=== PATIENT | male | born 1950 | race Caucasian/White ===

== ENCOUNTER 2020-10-06 06:17 | Day surgery (SDC) | payer OTHER, SELFPAY ==
[~2020-10-06] VITALS: Ht 182.9 cm; Wt 92.1 kg
[2020-10-06] MEDS ORDERED: CEFAZOLIN SOD 1 GM in D5W 50 ML IV ONE (07:00)
[2020-10-06] MEDS ORDERED: D5/0.45 NS 1,000 ML IV.SOLN IV ONE (07:36)
[2020-10-06] MEDS ORDERED: DEXAMETHASONE SOD PHOSPHATE 4 MG/ML VIAL IVP ONE (07:36)
[2020-10-06] MEDS ORDERED: SUGAMMADEX SODIUM 200 MG/2 ML VIAL IV ONE (07:36)
[2020-10-06] MEDS ORDERED: ROCURONIUM BROMIDE 10 MG/ML (ZEMURON) IV ONE (07:36)
[2020-10-06] MEDS ORDERED: LR 1,000 ML IV.SOLN IV ONE (07:36)
[2020-10-06] MEDS ORDERED: NS 1000 ML IV.SOLN IV ONE (07:36)
[2020-10-06] MEDS ORDERED: DESFLURANE 15 MIN GAS INH ONE (07:36)
[2020-10-06] MEDS ORDERED: KETOROLAC TROMETHAMINE 30 MG VIAL IVP ONE (07:36)
[2020-10-06] MEDS ORDERED: GLYCOPYRROLATE 0.2 MG/ML VIAL IJ ONE (07:36)
[2020-10-06] MEDS ORDERED: MIDAZOLAM HCL 5 MG/5 ML VIAL IVP ONE (07:36)
[2020-10-06] MEDS ORDERED: PROPOFOL 200MG/ 20ML VIAL (DIPRIVAN) IV ONE (07:36)
[2020-10-06] MEDS ORDERED: fentaNYL CITRATE 250 MCG/5 ML AMP IV ONE (07:36)
[2020-10-06] MEDS ORDERED: ePHEDrine sulfate 50 MG/ML VIAL IVP ONE (07:36)
[2020-10-06] MEDS ORDERED: MIDAZOLAM HCL 2 MG/2 ML VIAL (VERSED) IVP PRN (08:30)
[2020-10-06] MEDS ORDERED: MEPERIDINE HCL/PF 25 MG/ML DISP.SYRIN IVP PRN (08:30)
[2020-10-06] MEDS ORDERED: METOCLOPRAMIDE HCL 10 MG/2 ML VIAL IVP PRN (08:30)
[2020-10-06] MEDS ORDERED: HYDROmorphone 1 INJ. 1 MG/ML CARTRIDGE IVP PRN ×3 (08:30→09:30)
[2020-10-06] MEDS ORDERED: LABETALOL 100 MG/ 20ML VIAL IVP PRN (08:30)
[2020-10-06] MEDS ORDERED: hydrALAZINE HCL 20 MG/ML VIAL IVP PRN ×2 (08:30→18:00)
[2020-10-06] MEDS ORDERED: LR 1,000 ML IV SCH (08:30)
[2020-10-06] MEDS ORDERED: ONDANSETRON HCL 4 MG/2 ML VIAL IVP PRN ×2 (08:30→09:30)
[2020-10-06] MEDS ORDERED: HYDROcodone/ACETAMIN 5-325 MG TAB (NORCO/ VICODIN) PO PRN (09:30)
[2020-10-06 10:38] LABS: HEMATOCRIT 32.5 % (36-54); HEMOGLOBIN 10.6 g/dL (14.0-18.0)
[2020-10-06 11:51] VITALS: BP_SYST 154
[2020-10-06 12:25] VITALS: BP_SYST 133
[2020-10-06] MEDS: CEFAZOLIN 1 GM IVPB PREMIX 50 ML IV SCH ×2 (14:49→22:07)
[2020-10-06] MEDS: D5/0.45 NS 1,000 ML IV SCH ×2 (14:51→20:07)
[2020-10-06] MEDS ORDERED: AMIO200T66 PO (16:08)
[2020-10-06] MEDS ORDERED: FURO-149 PO (16:08)
[2020-10-06] MEDS ORDERED: METO50TA7 PO (16:08)
[2020-10-06] MEDS ORDERED: OMEP40CA13 PO (16:08)
[2020-10-06] MEDS ORDERED: SITA1TBM4 PO (16:08)
[2020-10-06] MEDS ORDERED: DIGO125T PO (16:08)
[2020-10-06] MEDS ORDERED: FLUT1AER INH (16:08)
[2020-10-06] MEDS ORDERED: TAMS-11 PO (16:08)
[2020-10-06] MEDS ORDERED: PRED1TAB PO (16:08)
[2020-10-06 16:17] VITALS: BP_SYST 177
[2020-10-06] MEDS ORDERED: AMIODARONE HCL 200 MG TABLET PO ONE (17:45)
[2020-10-06] MEDS ORDERED: ENALAPRILAT DIHYDRATE 1.25 MG/ML VIAL IVP PRN (18:00)
[2020-10-06] MEDS: HYDROcodone/ACETAMIN 5-325 MG TAB (NORCO/ VICODIN) PO PRN (18:23)
[2020-10-06] MEDS ORDERED: DIGOXIN 0.125 MG TABLET PO ONE (18:30)
[2020-10-06] MEDS ORDERED: METOPROLOL SUCCINATE 50 MG TAB.SR.24H (TOPROL XL) PO ONE (18:30)
[2020-10-06 18:55] VITALS: BP_SYST 175
[2020-10-06] MEDS ORDERED: PANTOPRAZOLE SODIUM 40 MG TAB PO ONE (19:00)
[2020-10-06 20:00] VITALS: BP_SYST 154
[2020-10-06] MEDS ORDERED: TAMSULOSIN HCL 0.4 MG CAP PO SCH (21:00)
[2020-10-06] MEDS ORDERED: FAMOTIDINE PF 20 MG/2 ML VIAL IVP SCH (21:00)
[2020-10-07] MEDS: HYDROcodone/ACETAMIN 5-325 MG TAB (NORCO/ VICODIN) PO PRN (00:18)
[2020-10-07] MEDS: ALBUTEROL SULFATE 0.083% 2.5 MG/3 ML VIAL.NEB INH SCH ×3 (01:00→07:22)
[2020-10-07 01:12] VITALS: BP_SYST 159
[2020-10-07] MEDS: BUDESONIDE 0.5 MG/2 ML AMPUL.NEB INH SCH ×2 (01:28→07:22)
[2020-10-07] MEDS: D5/0.45 NS 1,000 ML IV SCH (06:10)
[2020-10-07 06:13] LABS: BASOPHILS % (AUTO) 0.1 % (0.0-2.0); HEMATOCRIT 32.7 % (36-54); HEMOGLOBIN 10.6 g/dL (14.0-18.0); LYMPHOCYTES # (AUTO) 1.9 K/uL (1.0-5.5); LYMPHOCYTES % (AUTO) 13.4 % (20.5-51.5); MEAN CORPUSCULAR HEMOGLOBIN 27 pg (27-31); MEAN CORPUSCULAR HGB CONC 32 % (32-36); MEAN CORPUSCULAR VOLUME 83 fL (79.0-98.0); MONOCYTES # (AUTO) 0.9 K/uL (0.0-1.0); MONOCYTES % (AUTO) 6.4 % (1.7-9.3); NEUTROPHILS # (AUTO) 11.2 K/uL (1.8-7.7); NEUTROPHILS % (AUTO) 80.1 % (40.0-70.0); PLATELET COUNT (AUTO) 279 K/uL (130-430); RED BLOOD CELL COUNT(AUTO) 3.95 MIL/uL (4.2-6.2); RED CELL DISTRIBUTION WIDTH 17.5 % (9.0-15.0)
[2020-10-07 06:22] LABS: ALANINE AMINOTRANSFERASE 36 U/L (12-78); ALBUMIN 2.6 g/dL (3.4-4.8); ANION GAP 6 (5-15); ASPARTATE AMINOTRANSFERASE 33 U/L (10-37); CALCIUM 8.3 mg/dL (8.4-11.0); CHLORIDE 102 mmol/L (98-107); CREATININE 0.86 mg/dL (0.55-1.30); GLUCOSE 182 mg/dL (70-99); POTASSIUM 4.1 mmol/L (3.5-5.1); SODIUM SERUM 136 mmol/L (136-145); TOTAL BILIRUBIN 0.6 mg/dL (0.0-1.0); UREA NITROGEN, BLOOD 13 mg/dL (8-21)
[2020-10-07] MEDS ORDERED: DIGOXIN 0.125 MG TABLET PO SCH (09:00)
[2020-10-07] MEDS ORDERED: FLUTICASONE/VILANTEROL 1 EACH BLST.W.DEV INH SCH (09:00)
[2020-10-07] MEDS ORDERED: AMIODARONE HCL 200 MG TABLET PO SCH (09:00)
[2020-10-07] MEDS ORDERED: PANTOPRAZOLE SODIUM 40 MG TAB PO SCH (09:00)
[2020-10-07] MEDS ORDERED: predniSONE 1 MG TABLET PO SCH (09:00)
[2020-10-07] MEDS ORDERED: FUROSEMIDE 40 MG TABLET PO SCH (09:00)
[2020-10-07] MEDS ORDERED: METOPROLOL SUCCINATE 50 MG TAB.SR.24H (TOPROL XL) PO SCH (09:00)
[2020-10-07 09:13] VITALS: BP_SYST 127
[2020-10-07 10:14] VITALS: BP_SYST 127
[2020-10-07] MEDS ORDERED: APIXABAN 2.5 MG TABLET PO ONE (10:30)
[2020-10-07] MEDS ORDERED: APIXABAN 2.5 MG TABLET ONE (11:54)
== END 2020-10-07 12:25 | disposition home or self-care (01) ==
LOC: SMU 06:17 → SDS 06:17 → SMU 10:53 → STU 11:03 → SDS 10-07 12:25
PROVIDERS: ATTEND Colon & Rectal Surgery
DX: K80.12 Calculus of gallbladder with acute and chronic cholecystitis without obstruction (principal); I10 Essential (primary) hypertension; J44.9 Chronic obstructive pulmonary disease, unspecified; G47.33 Obstructive sleep apnea (adult) (pediatric); Z99.89 Dependence on other enabling machines and devices; E11.40 Type 2 diabetes mellitus with diabetic neuropathy, unspecified; I48.91 Unspecified atrial fibrillation; M19.90 Unspecified osteoarthritis, unspecified site; Z20.822 Contact with and (suspected) exposure to COVID-19; Z79.899 Other long term (current) drug therapy
CPT/HCPCS: 36415; 47563; 74300; 80053; 82962; 85018; 85025; 88304; 94640 ×2; 94760 ×2; C1727; C1758; C9399; J0690 ×2; J1100; J1885; J2250; J2704; J3010; J3490; J7030; J7060; J7120; J7512; J7613 ×2; J7626 ×2; Q9967; U0003; 76000; J0360